=== PATIENT | male | born 1945 | race Two or more races ===

== ENCOUNTER 2023-01-30 07:54 | Outpatient (OUT) | payer MEDICARE, SELFPAY ==
--- NOTE | 2023-01-30 08:05 | ECG_ITS ---
[facility] Test Date: 2023-01-30 Pat Name: PATRICIA KNAPP Department: Room: - Gender: Male [employer]: : 1945 Requested By: TITUS HEATH Order Number: [id number] Reading MD: SERGE ISAACS Measurements Intervals [place] Rate: 63 P: 30 OK: 162 QRS: 16 QRSD: 93 T: 53 QT: 406 QTc: 419 Interpretive Statements SINUS RHYTHM No previous ECG available for comparison Electronically Signed On 01-31-2023 7:00:20 EDT by SERGE ISAACS
--- NOTE | 2023-01-30 08:45 | P.GSHP_ITS ---
History of Present Illness History of Present Illness Chief complaint: BPH with obstruction Narrative: Patient presents for preadmission testing accompanied by his . The patient reports frequency with urination, incomplete bladder emptying, urgency with urination, nocturia, and he states he had a catheter placed which she believes made all of these symptoms worse. The catheter has since been removed. The patient denies dysuria, hematuria, abdominal pain, nausea, vomiting, fever, or any other complaints. Review of Systems ROS Narrative REVIEW OF SYSTEMS: Negative except as stated in HPI, ten or more systems reviewed. Constitutional: No fever , chills, weakness ENT: No sore throat or epistaxis Cardiovascular: No edema, chest pain, palpitations, or activity intolerance Respiratory: No shortness of breath, cough, or wheezing Musculoskeletal: No joint pain or swelling Gastrointestinal: No abdominal pain, constipation, diarrhea, or vomiting Genitourinary: No dysuria or hematuria Neurological: No numbness, tingling, weakness, or headache Psychiatric: No mood changes PFSH PFSH Medical History (Updated 01/30/23 @ 08:23 by Hannah Blanton NP) Anemia ?D64.9 - Anemia, unspecified (ICD-10) BPH (benign prostatic hyperplasia) ?N40.0 - Benign prostatic hyperplasia without lower urinary tract symptoms (ICD-10) BPH with obstruction/lower urinary tract symptoms ?N40.1 - Benign prostatic hyperplasia with lower urinary tract symptoms (ICD- 10) ?N13.8 - Other obstructive and reflux uropathy (ICD-10) Depression ?F32.A - Depression, unspecified (ICD-10) Diabetes ?E11.9 - Type 2 diabetes mellitus without complications (ICD-10) High cholesterol ?E78.00 - Pure hypercholesterolemia, unspecified (ICD-10) Hypertension ?I10 - Essential (primary) hypertension (ICD-10) Syncope (2019) ?R55 - Syncope and collapse (ICD-10) Surgical History (Updated 01/30/23 @ 08:23 by Hannah Blanton NP) History of colonoscopy ?Z98.890 - Other specified postprocedural states (ICD-10) History of tonsillectomy ?Z90.89 - Acquired absence of other organs (ICD-10) S/P cystoscopy ?Z98.890 - Other specified postprocedural states (ICD-10) Family History (Updated 01/30/23 @ 08:23 by Hannah Blanton NP) Other Epilepsy Family history of bone cancer Family history of diabetes mellitus Family history of stroke Family history of uterine cancer Social History (Updated 01/30/23 @ 08:17 by Hannah Blanton NP) Within the past year, how often did you have a drink containing alcohol: never Score interpretation: A score less than 4 is consistent with normal alcohol consumption. Smoking status: Never smoker Highest level of school completed/degree received: high school graduate Meds Home Medications and Allergies Home Medications Medication Instructions Recorded Confirmed Type amlodipine 2.5 mg tablet 2.5 mg PO DAILY 01/30/23 01/30/23 History aspirin 81 mg tablet,delayed 81 mg PO DAILY 01/30/23 01/30/23 History release (Adult Aspirin Regimen) atorvastatin 20 mg tablet 20 mg PO DAILY 01/30/23 01/30/23 History cholecalciferol (vitamin D3) 50 2,000 unit PO DAILY 01/30/23 01/30/23 History mcg (2,000 unit) capsule dulaglutide 1.5 mg/0.5 mL 1.5 mg subcut QWEEK 01/30/23 01/30/23 History subcutaneous pen injector (Trulicity) escitalopram oxalate 10 mg tablet 10 mg PO DAILY 01/30/23 01/30/23 History (Lexapro) gabapentin 300 mg capsule 600 mg PO QPM 01/30/23 01/30/23 History insulin glargine U-300 conc 300 6 unit subcut QAM 01/30/23 01/30/23 History unit/mL (3 mL) subcutaneous pen (Toujeo Max U-300 SoloStar) nutritional supplement-fiber oral ea 01/30/23 History liquid oxycodone-acetaminophen 5 mg-325 1 tab PO DAILY 01/30/23 01/30/23 History mg tablet (Percocet) tamsulosin 0.4 mg capsule (Flomax) 0.4 mg PO DAILY 01/30/23 01/30/23 History zonisamide 100 mg capsule 100 mg PO QPM 01/30/23 01/30/23 History (Zonegran) Allergies Allergy/AdvReac Type Severity Reaction Status Date / Time No Known Drug Allergies Allergy Verified 01/30/23 08:15 Exam Narrative Exam Narrative: Constitutional: Awake, alert, comfortable, well-appearing, nontoxic, interactive, vital signs as charted Head: Normocephalic, atraumatic Neck: Supple, normal appearance, normal range of motion, no meningeal signs, no lymphadenopathy Respiratory: No respiratory distress, breath sounds clear Cardiovascular: Regular rate and rhythm, strong and regular heart tones Abdomen: Nontender, normal bowel sounds, soft, no CVA tenderness Musculoskeletal: Normal gait, no swelling or edema Skin: No rashes or induration, no lesions, only visible skin inspected Neuro: No neurological deficits, normal sensation Psychiatric: Oriented ?3, normal affect Assessment and Plan Assessment and Plan (1) BPH with obstruction/lower urinary tract symptoms: Plan Cystoscopy, transurethral resection of the prostate scheduled with Dr. Casper 02/16/2023.
[2023-01-30 09:04] LABS: Basophils Percent Auto 0.6 % (0.2-2.0); Eosinophils Absolute Auto 0.1 10^3/uL (0.0-0.7); Eosinophils Percent Auto 2.5 % (0.9-7.0); Hematocrit 36.5 % (42.0-54.0); Hemoglobin 10.9 g/dL (14.0-18.0); Immature Granulocytes Abs Auto 0.01 10^3/uL (0.00-0.03); Immature Granulocytes Pct Auto 0.2 % (0.0-0.5); Lymphocytes Percent Auto 19.3 % (20.5-60.0); Mean Corpuscular HGB Conc 29.9 g/dL (29.9-35.2); Mean Corpuscular Hemoglobin 29.2 pg (25.9-34.0); Mean Corpuscular Volume 97.9 fL (80.0-94.0); Mean Platelet Volume 9.6 fL (9.5-13.5); Monocytes Absolute Auto 0.4 10^3/uL (0.3-0.8); Monocytes Percent Auto 6.8 % (1.7-12.0); Neutrophils Absolute Auto 3.6 10^3/uL (1.4-6.5); Neutrophils Percent Auto 70.6 % (43.0-75.0); Platelet Count 163 10^3/uL (150-450); Red Blood Count 3.73 10^6/uL (4.70-6.10); Red Cell Distribution Width 14.6 % (11.0-15.0); White Blood Count 5.1 10^3/uL (4.0-11.0)
[2023-01-30 09:16] LABS: INR 0.97; Partial Thromboplastin Time 29.4 sec (22.3-36.2); Prothrombin Time 10.3 sec (9.0-11.6)
[2023-01-30 09:35] LABS: Anion Gap 13.2; BUN Creatinine Ratio 11.4; Calcium 9.2 mg/dL (8.5-10.1); Carbon Dioxide 25.8 mmol/L (21.0-32.0); Chloride 105 mmol/L (98-107); Estimated GFR (African America 43 (>=60); Estimated GFR (Non-African Ame 36 (>=60); Glucose 145 mg/dL (74-106); Sodium 140 mmol/L (136-145)
== END 2023-01-30 07:55 | disposition home or self-care (01) ==
PROVIDERS: PCP Family Medicine; Visit Provider Urology
DX: Z01.810 Encounter for preprocedural cardiovascular examination (principal); Z01.812 Encounter for preprocedural laboratory examination; N40.1 Benign prostatic hyperplasia with lower urinary tract symptoms; E78.5 Hyperlipidemia, unspecified; F32.A Depression, unspecified; I10 Essential (primary) hypertension; E11.9 Type 2 diabetes mellitus without complications; Z79.01 Long term (current) use of anticoagulants; D64.9 Anemia, unspecified
CPT/HCPCS: 36415; 80048; 85025; 85610; 85730; 93005; G0463

== ENCOUNTER 2023-03-09 11:47 | Day surgery (SDC) | payer MEDICARE, SELFPAY ==
[2023-01-30 08:37] VITALS: BP 117/70; PULSE 96; RESP 18; TEMP 36.4; O2SAT 96; BMI 25.9
[2023-03-09] VITALS (12 sets, daily range): BP systolic 118–165; BP diastolic 62–86; PULSE 61–78; RESP 12–18; TEMP 36.2–36.6; O2SAT 90–97; BMI 29.2
[2023-03-09 12:33] LABS: Glucometer 109 mg/dL (74-106)
[2023-03-09] MEDS: LACTATED RINGER'S SOLUTION 1,000 ML 50 ML IV ×2 (12:49→15:30)
[2023-03-09] MEDS: LEVOFLOXACIN IN DEXTROSE 5 % 500 MG/100 ML PIGGYBACK 100 MG IV (14:43)
--- NOTE | 2023-03-09 15:38 | PM.URSON ---
Urology Surgery Operative Note Operative Note Procedure Date: 03/09/23 Time Out Performed: yes Pre-op Diagnosis: . Benign prostatic hypertrophy with L UTS despite medications. Post-op Diagnosis: same as pre-op Procedures performed: #1. Urethral dilation with Toni sounds to 28 [place]. #2. Cystoscopy. #3. Transurethral resection of the prostate. Anesthesia: GETA Primary Surgeon: Monty Casper Complications: non- Estimated blood loss (mL): 20 Findings: #1. Urethral meatal stenosis. #2. High median bar. #3. Bilobar obstruction Specimens: prostate chips. Drains: 22 [place] three-way coud? [place] to the bladder and traction and CBI Indications for Procedures: this gentleman has bladder. I will let obstruction symptoms despite medications. He is obstructed endoscopically.. He is desirous for transurethral resection of the prostate.he has signed an informed consent after all risks were explained. Some of these include bleeding, infection, anesthesia, retrograde ejaculation, urinary incontinence, both temporary and permanent, erectile dysfunction just to name a few Detailed description of Procedure: The patient was brought to the operating room and placed on the operating room table in the supine position. SCDs were placed on the lower extremities and turned on and functioning during the entire case. Timeout was done by all parties in the room. We all agreed upon the patient's identification and the planned procedures for this patient. Genn. anesthesia was then administered. The patient was then repositioned into the modified dorsal lithotomy position. All pressure points were satisfactorily padded. Genitalia were sterilely prepped and draped in usual fashion.. I started by attempting to pass a 26 [place] Olympus resectoscope with the standard bipolar loop electrode per urethra and into the bladder. I was unable due to significant urethral meatal stenosis. I then used Toni sounds and dilated him up to 28 FFrench. The 1st dilator actually popped through a strictured area. After the dilation, I was then easily able to pass the resectoscope into the bladder. The ureteral orifices were marked with the loop electrode. I then uniformly resected the high median bar down to the bladder neck level. I then resected posteriorly from the bladder neck to the veru. I then resected the left lateral lobe, right lateral lobe and anterior tissue. Posteriorly, I unroofed a couple pockets of prostatic calcifications. The apex was opened up. I then coagulated the entire resection bed. The ellick evacuator was used to get all of the prostate chips out of the bladder and these were sent for permanent sections. Upon completion with the scope at the apex, the prostatic urethra and bladder neck were now wide open. There was no bleeding. There were no chips in the bladder. The scope was removed. I tthen placed a 22 [place] three-way coud? [place] in the bladder. 30 mL of fluid was placed in the balloon. It was taped to traction and CBI was started. It irrigated clear. The anesthetic was then reversed. He was then transferred to a rcamden bed and wheeled to PACU in stable condition.
[2023-03-09] MEDS: SODIUM CHLORIDE 0.9% 3,000 ML IRRIG SOLN 3000 ML IRR ×9 (16:30→23:33)
[2023-03-09] MEDS: SOLIFENACIN SUCCINATE 10 MG TABLET PO (16:38)
[2023-03-09] MEDS: CEFAZOLIN SODIUM/DEXTROSE,ISO 1 GM/50 ML IV.SOLN IV ×2 (16:38→23:10)
[2023-03-09] MEDS: 0.9 % SODIUM CHLORIDE 1,000 ML 80 ML IV (16:38)
[2023-03-09] MEDS: HYDROCODONE/ACET 5-325 MG TABLET 1 TAB PO ×2 (17:26→20:41)
[2023-03-09 20:34] LABS: Glucometer 82 mg/dL (74-106)
[2023-03-09] MEDS: GABAPENTIN 300 MG CAPSULE 600 MG PO (20:38)
[2023-03-09] MEDS: ZONISAMIDE 100 MG CAPSULE PO (20:38)
[2023-03-09] MEDS: ATORVASTATIN CALCIUM 20 MG TABLET PO (21:48)
[2023-03-10] MEDS: SODIUM CHLORIDE 0.9% 3,000 ML IRRIG SOLN 3000 ML IRR ×3 (00:33→04:15)
[2023-03-10 01:00] VITALS: BP 149/82; PULSE 73; RESP 18; TEMP 36.6; O2SAT 91
[2023-03-10 03:01] LABS: Glucometer 90 mg/dL (74-106)
--- NOTE | 2023-03-10 05:00 | PC.NURSE ---
Weaned CBI. Light Quail urine noted. Removed traction. Reminded patient he will be going home with escalona. Patient stated I will take the damn thing out myself Provided education to patient that the Dr will decide at follow up appointment when it is safe to remove escalona.
[2023-03-10 05:28] VITALS: BP 152/73; PULSE 73; RESP 18; TEMP 37.2; O2SAT 90
--- NOTE | 2023-03-10 06:12 | PC.NURSE ---
Patient educated on changing the leg bag to night time bag at HS, hand hygiene, signs to look for clots, and cleaning hubs on alcohol.Patient used teach back method on no sexual contact and cleaning the catheter with soap and water. Patient stated how do I just take this thing out Educated on potential trauma to area if he pulls in out himself. Patient walked halls and is currently sitting in chair. Call light within reach
[2023-03-10] MEDS: 0.9 % SODIUM CHLORIDE 1,000 ML 80 ML IV (06:18)
== END 2023-03-10 09:30 | disposition home or self-care (01) ==
LOC: SURGOUT 15:32 → MS 16:17
PROVIDERS: PCP Family Medicine; Visit Provider Urology
PROC: (CPT 52601; principal; 2023-03-09 13:05)
DX: N40.1 Benign prostatic hyperplasia with lower urinary tract symptoms (principal); F32.A Depression, unspecified; Z79.01 Long term (current) use of anticoagulants; D64.9 Anemia, unspecified; Z85.828 Personal history of other malignant neoplasm of skin; Z79.4 Long term (current) use of insulin; Z87.891 Personal history of nicotine dependence; R39.14 Feeling of incomplete bladder emptying; R39.15 Urgency of urination; R35.0 Frequency of micturition; R35.1 Nocturia; N13.8 Other obstructive and reflux uropathy; E78.00 Pure hypercholesterolemia, unspecified; Z79.82 Long term (current) use of aspirin; N35.911 Unspecified urethral stricture, male, meatal; I12.9 Hypertensive chronic kidney disease with stage 1 through stage 4 chronic kidney disease, or unspecified chronic kidney disease; E11.22 Type 2 diabetes mellitus with diabetic chronic kidney disease; N18.30 Chronic kidney disease, stage 3 unspecified; E11.40 Type 2 diabetes mellitus with diabetic neuropathy, unspecified
CPT/HCPCS: 52601; 36415; 82948; 88305; J2704